=== PATIENT | female | born 1980 | race Caucasian/White ===

== ENCOUNTER 2018-03-11 19:39 | Emergency (ER) | payer BC ==
[2018-03-11 21:09] LABS: EOS # 0.5 (0.04-0.40); EOS % 3.3 % (1.0-5.0); HEMATOCRIT 37.1 % (37.0-47.0); HEMOGLOBIN 12.7 g/dL (12.5-16.0); LYMPH# 2.4 (1.50-4.00); MEAN CELL VOLUME 91 fl (78-100); MEAN CORPUSCULAR HEMOGLOBIN 31 pg (27-31); MEAN CORPUSCULAR HGB CONC 34 g/dL (33-37); MEAN PLATELET VOLUME 8.7 fl (7.4-10.4); MONO # 1.2 (0.20-0.80); PLATELET COUNT 381 K/mm3 (130-400); RED BLOOD COUNT 4.09 M/mm3 (4.10-5.30); RED CELL DISTRIBUTION WIDTH 11.8 % (11.5-14.5); WHITE BLOOD COUNT 13.8 K/mm3 (4.8-10.8)
[2018-03-11 21:10] LABS: NEU # 9.7 (1.40-6.50)
[2018-03-11 21:18] LABS: URINE APPEARANCE CLEAR; URINE BILIRUBIN NEGATIVE (NEGATIVE); URINE BLOOD 50 ery/uL (NEGATIVE); URINE COLOR YELLOW; URINE GLUCOSE NEGATIVE (NEGATIVE); URINE KETONE NEGATIVE (NEGATIVE); URINE LEUKOCYTE ESTERASE TRACE (NEGATIVE); URINE MUCUS PRESENT (NOT PRESENT); URINE NITRATE NEGATIVE (NEGATIVE); URINE PROTEIN(semi-quant) NEGATIVE (NEGATIVE); URINE UROBILINOGEN NORMAL (NORMAL)
[2018-03-11] MEDS ORDERED: MACROBID 100 M100 MG PO (21:29)
[2018-03-11 21:32] VITALS: BP 139/96
== END 2018-03-11 21:34 | disposition home or self-care (01) ==
LOC: ED 19:39
PROVIDERS: Family Medicine
DX: Z90.710 Acquired absence of both cervix and uterus (principal); R50.9 Fever, unspecified

== ENCOUNTER → 2018-07-21 | Outpatient (CLI) | payer BC ==
[~2018-07-21] MED LIST: ADVIL 200MG TA200 MG PO; BACTRIM DS TAB1 EACH PO; CEPHALEXIN500 M1 PO; ESTRACE1 M1 PO; MACROBID 100 M100 MG PO; PREDNISONE10 MG PO; TRAMADOL 50 MG TAB PO
[2018-07-22 11:24] LABS: EOS # 0.2 (0.04-0.40); HEMATOCRIT 44.1 % (37.0-47.0); HEMOGLOBIN 14.4 g/dL (12.5-16.0); LYMPH# 2.7 (1.50-4.00); MEAN CELL VOLUME 89 fl (78-100); MEAN CORPUSCULAR HEMOGLOBIN 29 pg (27-31); MEAN CORPUSCULAR HGB CONC 33 g/dL (33-37); MEAN PLATELET VOLUME 9.4 fl (7.4-10.4); MONO # 1.9 (0.20-0.80); NEU # 12.8 (1.40-6.50); PLATELET COUNT 397 K/mm3 (130-400); RED BLOOD COUNT 4.94 M/mm3 (4.10-5.30); RED CELL DISTRIBUTION WIDTH 12.7 % (11.5-14.5); WHITE BLOOD COUNT 17.6 K/mm3 (4.8-10.8)
[2018-07-22 12:52] LABS: POTASSIUM 4.2 mmol/L (3.6-5.0)
[2018-07-22 12:53] LABS: ALBUMIN 4.6 g/dL (3.5-5.0); CALCIUM 9.5 mg/dL (8.4-10.2); TOTAL BILIRUBIN 0.5 mg/dL (0.2-1.3); TOTAL PROTEIN 7.8 g/dL (6.3-8.2)
== END ==
LOC: RAD 07-18 12:32
PROVIDERS: Nurse Practitioner
DX: R60.9 Edema, unspecified (principal); R10.9 Unspecified abdominal pain

== ENCOUNTER 2018-07-29 20:53 | Emergency (ER) | payer BC ==
[~2018-07-29] VITALS: Ht 160 cm; Wt 75.0 kg
[2018-07-29 10:07] VITALS: BP 142/86
[~2018-07-29 20:53] MED LIST changes: -PREDNISONE10 MG PO
[2018-07-29] MEDS ORDERED: PREDNISONE10 MG PO (21:53)
== END 2018-07-29 21:58 | disposition home or self-care (01) ==
LOC: ED 20:53
DX: R21 Rash and other nonspecific skin eruption (principal); F17.210 Nicotine dependence, cigarettes, uncomplicated; Z90.710 Acquired absence of both cervix and uterus
CPT/HCPCS: J7512

== ENCOUNTER 2018-08-23 10:36 | Outpatient (RCR) | payer BC ==
[2018-07-26 09:30] VITALS: BP 134/93
[2018-07-27 09:54] VITALS: BP 141/99
[2018-07-28 09:38] VITALS: BP 127/86
[2018-07-30 09:47] VITALS: BP 169/78
[2018-07-31 09:30] VITALS: BP 158/83
[2018-08-01 09:29] VITALS: BP 120/85
[2018-08-02 09:24] VITALS: BP 137/92
[2018-08-03 08:12] VITALS: BP 125/80
[2018-08-04 09:45] VITALS: BP 139/89
[2018-08-05 09:45] VITALS: BP 135/98
[2018-08-06 09:56] VITALS: BP 124/87
[2018-08-07 09:51] VITALS: BP 144/96
[2018-08-08 09:53] VITALS: BP 11/76; BP 111/76
[2018-08-09 09:55] VITALS: BP 109/71
[2018-08-10 09:44] VITALS: BP 155/88
[2018-08-11 09:30] VITALS: BP 121/70
[2018-08-12 10:27] VITALS: BP 147/97
[2018-08-13 09:38] VITALS: BP 156/87
[2018-08-14 09:30] VITALS: BP 103/66
[2018-08-15 09:50] VITALS: BP 113/77
[2018-08-16 09:33] VITALS: BP 107/76
[2018-08-17 06:20] VITALS: BP 116/77
[2018-08-18 11:04] VITALS: BP 120/86
[2018-08-19 09:35] VITALS: BP 134/91
[2018-08-20 09:28] VITALS: BP 108/74
[2018-08-21 09:38] VITALS: BP 108/76
[2018-08-22 09:53] VITALS: BP 112/73
[~2018-08-23] VITALS: Ht 160 cm; Wt 77.3 kg
[2018-08-23 10:30] VITALS: BP 116/89
[~2018-08-23 10:36] MED LIST changes: +PREDNISONE10 MG PO
== END 2018-08-23 18:00 | disposition home or self-care (01) ==
LOC: AMSURD 10:36
DX: T14.8XXA Other injury of unspecified body region, initial encounter (principal)